=== PATIENT | male | born 1950 | race Caucasian/White ===

== ENCOUNTER → 2017-03-14 | Outpatient (CLI) | payer BC, MEDICARE ==
[2017-03-14 08:56] LABS: Blood Urea Nitrogen 18 mg/dL (9-20); Non-African American GFR(MDRD) >60 (>60 ml/min/1.73 sqM)
== END | disposition home or self-care (01) ==
LOC: LABWHC1 08:23
PROVIDERS: ATTEND Nurse Practitioner Family
DX: H93.19 Tinnitus, unspecified ear (principal); H93.3X9 Disorders of unspecified acoustic nerve; I67.89 Other cerebrovascular disease
CPT/HCPCS: 36415; 82565; 84520

== ENCOUNTER 2017-12-24 09:48 | Day surgery (SDC) | payer BC, MEDICARE ==
[2017-12-18 11:27] VITALS: BMI 29.3
[~2017-12-24 09:48] MED LIST: DEXAMETHASONE SOD PHOSPHATE 10 MG/ML 1 ML VIAL IV ONE; LACTATED RINGERS 1,000 ML IV SCH; LIDOCAINE 1% 20 ML VIAL (10MG/ML) FOR IV START INTRADERMA PRN; MOXIFLOXACIN HCL 0.5% DROPS 3 ML BTL OP ONE; TETRACAINE 0.5% OPHTH (PF) DROPS 4 ML BTL OP ONE; TIMOLOL 0.5% OPHTH DROPS 5 ML BTL OP ONE
[2017-12-24] MEDS: CYCLOPENTOLATE 1% OPHTH SOLN 2 ML BTL OP ONE ×2 (11:19→11:24)
[2017-12-24 11:22] VITALS: RESP 16; TEMP 98
[2017-12-24] MEDS: PHENYLEPHRINE 2.5% OPHTH DRP 2ML OP NR ×3 (11:22→11:35)
[2017-12-24] MEDS ORDERED: DUOVISC KIT (GREEN BOX) INTRAOCULA ONE (12:10)
[2017-12-24] MEDS ORDERED: LIDOCAINE 1% (PF) 10MG/ML VIAL SQ ONE (12:10)
[2017-12-24] MEDS ORDERED: BALANCED SALT IRRIG SOLN COMB2 15 ML IRRIG.SOLN IRRIGATION ONE (12:10)
[2017-12-24] MEDS ORDERED: EPINEPHrine (PF) 0.3 ML in BALANCED SALT IRRIG SOLN COMB2 500 ML IRRIGATION ONE (12:11)
[2017-12-24] MEDS ORDERED: fentaNYL (PF) 50 MCG/ML 2 ML AMP ONE (12:11)
[2017-12-24] MEDS ORDERED: MIDAZOLAM 2 MG/2 ML VIAL ONE (12:11)
--- NOTE | 2017-12-24 12:38 | P.OP ---
Date of Procedure: 12/24/17 Preoperative Diagnosis: PXS & PSC & NS & CS Postoperative Diagnosis: same Procedure(s) Performed: PIOL OS & CTR implantation Implants: PCB00 6.00 & [id number] Anesthesia: MAC Surgeon: Tyron Peterson Estimated Blood Loss (ml): 0 Pathology: none sent Condition: stable Disposition: same day Indications for Procedure: BLURRY VISION Operative Findings: No complications
[2017-12-24 13:02] VITALS: BP 128/80; PULSE 70
--- NOTE | 2017-12-24 21:58 | OP ---
OPERATIVE REPORT DATE OF SURGERY: 12/24/2017 PROCEDURE: Phacoemulsification of cataract and intraocular lens implant of the left eye. 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 SURGEONS: Dr. Tyron Peterson. ANESTHESIA: Topical. ESTIMATED BLOOD LOSS: None. SPECIMEN TAKEN: None. NARRATIVE: After obtaining the appropriate consent, the patient was brought to the operating room. There he was placed on cardiac monitoring, prepped and draped in the usual sterile manner. He was approached from his left temporal side and at the 5 o'clock position, a 1.1 mm stab blade was used to create a paracentesis port. Through this opening, 1% Xylocaine MPF 50:50 mix of balanced salt solution was injected into the anterior chamber. This was followed by stabilization of the anterior chamber with Viscoat. At the 3 o'clock position, a 2.5 mm keratome was used to create a self-sealing corneal flap incision in a Langerman fashion. Through this opening, a cystotome was used to begin a continuous tear capsulorrhexis, which was completed using the Utrata forceps. Hydrodissection and hydrodelineation of the lens was accomplished with balanced salt solution. Phacoemulsification lens utilizing phaco chop was accomplished in 7.54 seconds at 10% power. Additional Xylocaine MPF was instilled into the anterior chamber. This was followed by removal of the remaining cortex under irrigation and aspiration along with careful polishing of the posterior capsule in capsule vacuum mode. Provisc was then used to stabilize the capsular bag in the anterior chamber. An JIAN capsular tension ring, model STBL 13US was then inserted into the capsular bag without difficulty. This was followed by placement of an JIAN PCB 006 diopter posterior chamber intraocular lens into the capsular bag, also without difficulty. The remaining viscoelastic was then removed from in and around the intra-ocular lens, as well as the anterior chamber. The eye was then brought to normal intraocular pressure through the paracentesis port with balanced salt solution while confirming watertight integrity of the incisions. He then received 2 drops of moxifloxacin, as well as 2 drops of 0.5% timolol. He was then lightly patched and shielded in the usual manner. There were no complications from the procedure. He tolerated the procedure well, and was returned to outpatient recovery in good condition. MMDORYS / JON: [id number] /
== END 2017-12-24 13:13 | disposition home or self-care (01) ==
LOC: OR 09:48
PROVIDERS: ATTEND Ophthalmology
DX: H25.13 Age-related nuclear cataract, bilateral (principal); H01.009 Unspecified blepharitis unspecified eye, unspecified eyelid; H40.043 Steroid responder, bilateral; H18.4 Corneal degeneration; H25.042 Posterior subcapsular polar age-related cataract, left eye; H52.13 Myopia, bilateral; H52.223 Regular astigmatism, bilateral; H52.4 Presbyopia; H35.433 Paving stone degeneration of retina, bilateral; H00.023 Hordeolum internum right eye, unspecified eyelid; H00.026 Hordeolum internum left eye, unspecified eyelid; E07.9 Disorder of thyroid, unspecified; I69.311 Memory deficit following cerebral infarction; Z87.891 Personal history of nicotine dependence; Z79.82 Long term (current) use of aspirin; Z79.890 Hormone replacement therapy; Z79.899 Other long term (current) drug therapy
CPT/HCPCS: 66984; L8610; C1780; J2250; J0171; J3010; J2001

== ENCOUNTER → 2018-01-14 | Day surgery (SDC) | payer BC ==
[2018-01-13 08:18] VITALS: BMI 29.3
[~2018-01-14] MED LIST changes: +BALANCED SALT IRRIG SOLN COMB2 15 ML IRRIG.SOLN IRRIGATION ONE; -DEXAMETHASONE SOD PHOSPHATE 10 MG/ML 1 ML VIAL IV ONE; +HYALURONATE SODIUM INTRAOCULAR 1 EACH SYRINGE (12MG/ML) INTRAOCULA ONE; +LIDOCAINE 1% (PF) 10MG/ML VIAL SQ ONE; +MIDAZOLAM 2 MG/2 ML VIAL IV PRN; +MIDAZOLAM 2 MG/2 ML VIAL ONE; +fentaNYL (PF) 50 MCG/ML 2 ML AMP ONE
[2018-01-14] MEDS: PHENYLEPHRINE 2.5% OPHTH DRP 2ML OP NR ×4 (09:53→10:06)
[2018-01-14] MEDS: CYCLOPENTOLATE 1% OPHTH SOLN 2 ML BTL OP ONE ×3 (09:55→10:06)
[2018-01-14 09:58] VITALS: RESP 16; TEMP 97.7
--- NOTE | 2018-01-14 11:27 | P.OP ---
Date of Procedure: 01/14/18 Preoperative Diagnosis: NS & CS & PSC & PXS Postoperative Diagnosis: same Procedure(s) Performed: PIOL & CTR implantation OD Implants: PCB00 6.0 & CTR [id number] Anesthesia: MAC (per) Surgeon: Tyron Peterson Estimated Blood Loss (ml): 0 Pathology: none sent Condition: stable Disposition: same day Indications for Procedure: blurry vision Operative Findings: No complications
[2018-01-14 12:16] VITALS: BP 122/80; PULSE 54
--- NOTE | 2018-01-14 19:35 | OP ---
OPERATIVE REPORT DATE OF SURGERY: January 14, 2018. PROCEDURE PERFORMED: Phacoemulsification of cataract and intraocular lens implant of the right eye with capsular tension ring implantation. PREOPERATIVE DIAGNOSES: Nuclear sclerosis, cortical sclerosis, posterior subcapsular cataract, and pseudo exfoliative lens changes. POSTOPERATIVE DIAGNOSES: Nuclear sclerosis, cortical sclerosis, posterior subcapsular cataract and pseudo exfoliative lens changes. SURGEONS: Dr. Tyron Peterson. ANESTHESIA: Topical. ESTIMATED BLOOD LOSS: None. SPECIMEN: Taken none. NARRATIVE: After obtaining the appropriate consent, the patient was brought to the operating room. There he was placed under cardiac monitoring, prepped and draped in usual sterile manner. He was approached from his right temporal side and at the 11 o'clock position, a 20-gauge stab blade was used to create a paracentesis port through this opening 1% Xylocaine MPF 50/50 mix of balanced salt solution was injected into the anterior chamber. This was followed by stabilization of the anterior chamber with Amvisc. At the 9 o'clock position, a 2.5 mm keratome was used to create a self-sealing corneal flap incision. Through this opening, a cystotome was introduced to begin a continuous tear capsulorrhexis which was completed using the Utrata forceps. Hydrodissection and hydrodelineation of the lens was accomplished with balanced salt solution. Phacoemulsification of the lens utilizing phaco chop was accomplished in 8.24 seconds at 10% power. This was followed by additional Xylocaine MPF in the anterior chamber and removal of the remaining cortex under irrigation aspiration along with careful polishing of the posterior capsule in the capsule vacuum mode. Additional Amvisc was used to stabilize the capsular bag in the anterior chamber and an JIAN model [id number] capsular tension ring was inserted into the equator of the capsular bag without difficulty. This was followed by placement of an JIAN PCB 00 6.0 diopter posterior chamber intra-ocular lens also into the capsular bag without difficulty. The remaining viscoelastic was then removed from in and around the intra-ocular lens as well as the anterior chamber. The eye was then brought to normal intraocular pressure through the paracentesis port with balanced salt solution. The incisions were confirmed watertight. He then received 2 drops of 0.5% timolol followed by 2 drops of Vigamox, was then lightly patched and shielded in the usual manner. There were no complications from the procedure. He tolerated the procedure well and was returned to outpatient recovery in good condition. MMDORYS / JON: [id number] /
== END ==
LOC: OR 07:47
PROVIDERS: ATTEND Ophthalmology
DX: H25.11 Age-related nuclear cataract, right eye (principal); H26.8 Other specified cataract; H52.223 Regular astigmatism, bilateral; H01.009 Unspecified blepharitis unspecified eye, unspecified eyelid; H40.043 Steroid responder, bilateral; H18.4 Corneal degeneration; H52.13 Myopia, bilateral; H00.023 Hordeolum internum right eye, unspecified eyelid; H00.025 Hordeolum internum left lower eyelid; H52.4 Presbyopia; H35.433 Paving stone degeneration of retina, bilateral; Z96.1 Presence of intraocular lens; Z87.891 Personal history of nicotine dependence; E07.9 Disorder of thyroid, unspecified; Z86.73 Personal history of transient ischemic attack (TIA), and cerebral infarction without residual deficits; Z79.2 Long term (current) use of antibiotics; Z79.82 Long term (current) use of aspirin; Z79.890 Hormone replacement therapy; Z79.899 Other long term (current) drug therapy
CPT/HCPCS: 66982; L8610; C1780; J2250; J3010; J2001

== ENCOUNTER 2019-06-16 18:20 | Emergency (ER) | payer BC, MEDICARE ==
[2019-06-16 18:28] VITALS: RESP 18
[2019-06-16] MEDS ORDERED: PIPERACILLIN-TAZOBACTAM 3.375 GM in SODIUM CHLORIDE 0.9% 100 ML IVPB STA (19:28)
[2019-06-16] MEDS ORDERED: SODIUM CHLORIDE 0.9% 1,000 ML IV ONE (19:28)
[2019-06-16] MEDS ORDERED: SODIUM CHLORIDE 0.9% 1,000 ML IV SCH (19:30)
--- NOTE | 2019-06-16 19:57 | XR ---
EXAMINATION TYPE: XR hand complete LT DATE OF EXAM: 06/16/2019 COMPARISON: NONE HISTORY: Pain TECHNIQUE: 3 views FINDINGS: There is soft tissue swelling on the dorsum of the hand. Metacarpals are intact. I see no f racture nor dislocation. There is spurring at the first carpometacarpal joint. IMPRESSION: Soft tissue swelling. No fracture seen. Osteoarthritis at the first carpometacarpal joint and also the second and third MP joints.
[2019-06-16 20:18] LABS: Basophils # (A) 0.1 k/uL (0-0.2); Basophils % (A) 1 %; Eosinophils # (A) 0.3 k/uL (0-0.7); Eosinophils % (A) 3 %; HCT 44.9 % (39.0-53.0); Lymphocytes # (A) 1.4 k/uL (1.0-4.8); Lymphocytes % (A) 17 %; MCH 30.1 pg (25.0-35.0); MCHC 33.5 g/dL (31.0-37.0); MCV 89.9 fL (80.0-100.0); Mean Platelet Volume 7.1; Monocytes # (A) 0.7 k/uL (0-1.0); Monocytes % (A) 8 %; Neutrophils # (A) 5.3 k/uL (1.3-7.7); Neutrophils % (A) 67 %; Platelet Count 267 k/uL (150-450); RDW 12.3 % (11.5-15.5); WBC 7.9 k/uL (3.8-10.6)
[2019-06-16 20:27] LABS: Albumin 4.1 g/dL (3.5-5.0); Calcium 9.3 mg/dL (8.4-10.2); Potassium 4.9 mmol/L (3.5-5.1); Total Bilirubin 0.7 mg/dL (0.2-1.3); Total Protein 6.8 g/dL (6.3-8.2)
--- NOTE | 2019-06-16 21:32 | US ---
EXAMINATION TYPE: US venous doppler duplex UE LT DATE OF EXAM: 06/16/2019 COMPARISON: NONE CLINICAL HISTORY: swelling hand. Left hand swelling x 1 week. No hx of DVT. Patient takes aspirin. SIDE PERFORMED: Left Left Arm: No evidence of DVT in veins imaged at this time. IMPRESSION: Negative left arm duplex venous sonogram.
--- NOTE | 2019-06-16 22:00 | ED ---
Extremity Problem HPI - General Source: patient Mode of arrival: ambulatory Limitations: no limitations <Yesy Ramirez - Last Filed: 06/16/19 23:17> <Teresa Velásquez - Last Filed: 06/18/19 00:23> - General Chief complaint: Extremity Problem,Nontraumatic Stated complaint: Swollen hand Time Seen by Provider: 06/16/19 18:59 - History of Present Illness Initial comments: 68-year-old male presenting to [facility] for evaluation of left hand swelling. Patient states approximately a week ago he sustained a scratch to the left hand. He states a few days later after mowing the grass he noticed hand swelling. He states some increasing and became warm over the past week. Patient denies fevers flex symptoms denies any swelling of the digits are decreased range of motion of the digits. Patient denies any forced flexed positioning of the fingers. Patient denies any proximal swelling. Denies history of DVT or p ulmonary embolism. Patient denies any history of cancer. Patient denies any other complaints or areas of injury or complaints. Remaining ROS negative. (Yesy Ramirez) - Related Data Home Medications Medication Instructions Recorded Confirmed Atorvastatin Calcium 20 mg PO QAM 09/25/15 01/13/18 Cholecalciferol [Vitamin D3] 4,000 unit PO DAILY 09/25/15 01/13/18 Levothyroxine Sodium [Synthroid] 112 mcg PO QAM 09/25/15 01/13/18 Ubidecarenone [Co Q-10] 200 mg PO DAILY 09/25/15 01/13/18 Aspirin 325 mg PO DAILY 12/18/17 01/13/18 Cyanocobalamin (Vitamin B-12) 5,000 mcg PO DAILY 12/18/17 01/13/18 [Vitamin B12] Previous Rx's Medication Instructions Recorded Cephalexin [Keflex] 500 mg PO Q6HR 7 Days #28 cap 06/16/19 Sulfamethox-Tmp 800-160Mg [Bactrim 1 tab PO Q12HR 10 Days #20 tab 06/16/19 DS 800-160 mg] Allergies Allergy/AdvReac Type Severity Reaction Status Date / Time No Known Allergies Allergy Verified 06/16/19 18:28 Review of Systems ROS Other: All systems not noted in ROS Statement are negative. <Yesy Ramirez - Last Filed: 06/16/19 23:17> ROS Other: All systems not noted in ROS Statement are negative. <Teresa Velásquez P - Last Filed: 06/18/19 00:23> ROS Statement: Those systems with pertinent positive or pertinent negative responses have been documented in the HPI. Past Medical History Past Medical History: Hyperlipidemia, Thyroid Disorder Additional Past Medical History / Comment(s): HYPOTHYROIDISM, CATARACT RIGHT EYE History of Any Multi-Drug Resistant Organisms: None Reported Past Surgical History: Tonsillectomy Additional Past Surgical History / Comment(s): HEMORROIDECTOMY, CATARACT LEFT EYE 12/24/17 Past Anesthesia/Blood Transfusion Reactions: No Reported Reaction Past Psychological History: No Psychological Hx Reported Smoking Status: Former smoker Past Alcohol Use History: Occasional Past Drug Use History: None Reported - Past Family History Mother Family Medical History: No Reported History <Yesy Ramirez - Last Filed: 06/16/19 23:17> General Exam Limitations: no limitations <Yesy Ramirez - Last Filed: 06/16/19 23:17> - General Exam Comments Initial Comments: General: The patient is awake and alert, in no distress, and does not appear acutely ill. Eye: Pupils are equal, round and reactive to light, extra-ocular movements are intact. No nystagmus. There is normal conjunctiva bilaterally. No signs of icterus. Cardiovascular: There is a regular rate and rhythm. No murmur, rub or gallop is appreciated. Respiratory: Lungs are clear to auscultation, respirations are non-labored, breath sounds are equal. No wheezes, stridor, rales, or rhonchi. Musculoskeletal: Patient has swelling of the dorsum of the left hand. No rash. Small superficial abrasion noted. Patient is able to fully flex extend at the MCP DIP and PIP joints no fusiform swelling. There is mild swelling of all 5 digits however. Patient is not area of fluctuant abscess Strength 5/5. Sensation intact. =Radial pulses equal bilaterally 2+. Neurological: A&O x 3. CN II-XII intact, There are no obvious motor or sensory deficits. Coordination appears grossly intact. Speech is normal. Skin: Skin is warm and dry and no rashes or lesions are noted. Psychiatric: Cooperative, appropriate mood & affect, normal judgment. (Yesy Ramirez) Course Vital Signs 11/13/19 11/13/19 18:26 22:40 Temperature 98.1 F 98.2 F Pulse Rate 74 68 Respiratory 18 18 Rate Blood Pressure 143/91 117/68 O2 Sat by Pulse 99 97 Oximetry Medical Decision Making - Lab Data Result diagrams: 06/16/19 20:00 06/16/19 20:00 <Yesy Ramirez - Last Filed: 06/16/19 23:17> - Lab Data Result diagrams: 06/16/19 20:00 06/16/19 20:00 <Teresa Velásquez - Last Filed: 06/18/19 00:23> - Medical Decision Making 68-year-old male presenting to the ER for chief complaint of hand swelling. Abrasion with soft tissue swelling and redness concerning for cellulitis and exam. Ultrasound negative for DVT. Laboratory studies stable no evidence of leukocytosis. No systemic signs of infection. No signs of flexor tenosynovitis patient was evaluated by my attending provider he was given 1 dose of Zosyn at this time we feel patient is stable for discharge with outpatient primary care follow-up and strict return parameters for worsening symptoms. Patient verbalized understanding and was discharged appearing well with Keflex and Bactrim. (Yesy Ramirez) I personally saw and evaluated the patient, patient was swelling of the dorsum of the hand no obvious abscess. Patient will be discharged home with oral antibiotics. Close return parameters were discussed with the patient and his at bedside who presents understanding and agreement with plan. (Teresa Swan) - Lab Data Lab Results 06/16/19 06/16/19 06/16/19 Range/Units 20:00 20:00 20:00 WBC 7.9 (3.8-10.6) k/uL RBC 5.00 (4.30-5.90) m/uL Hgb 15.0 (13.0-17.5) gm/dL Hct 44.9 (39.0-53.0) % MCV 89.9 (80.0-100.0) fL MCH 30.1 (25.0-35.0) pg MCHC 33.5 (31.0-37.0) g/dL RDW 12.3 (11.5-15.5) % Plt Count 267 (150-450) k/uL Neutrophils % 67 % Lymphocytes % 17 % Monocytes % 8 % Eosinophils % 3 % Basophils % 1 % Neutrophils # 5.3 (1.3-7.7) k/uL Lymphocytes # 1.4 (1.0-4.8) k/uL Monocytes # 0.7 (0-1.0) k/uL Eosinophils # 0.3 (0-0.7) k/uL Basophils # 0.1 (0-0.2) k/uL Sodium 139 (137-145) mmol/L Potassium 4.9 (3.5-5.1) mmol/L Chloride 107 (98-107) mmol/L Carbon Dioxide 24 (22-30) mmol/L Anion Gap 8 mmol/L BUN 24 H (9-20) mg/dL Creatinine 1.34 H (0.66-1.25) mg/dL Est GFR (CKD-EPI)AfAm 63 (>60 ml/min/1.73 sqM) Est GFR (CKD-EPI)NonAf 55 (>60 ml/min/1.73 sqM) Glucose 99 (74-99) mg/dL Plasma Lactic Acid Juma 1.0 (0.7-2.0) mmol/L Calcium 9.3 (8.4-10.2) mg/dL Total Bilirubin 0.7 (0.2-1.3) mg/dL AST 33 (17-59) U/L ALT 25 (21-72) U/L Alkaline Phosphatase 58 (38-126) U/L Total Protein 6.8 (6.3-8.2) g/dL Albumin 4.1 (3.5-5.0) g/dL Disposition Is patient prescribed a controlled substance at d/c from ED?: No Time of Disposition: 22:24 <Yesy Ramirez L - Last Filed: 06/16/19 23:17> <Teresa Velásquez P - Last Filed: 06/18/19 00:23> Clinical Impression: Cellulitis of left hand Disposition: HOME SELF-CARE Condition: Good Instructions (If sedation given, give patient instructions): Cellulitis (ED) Additional Instructions: Please use medication as discussed. Please follow-up with family doctor in the next 2 days Please return to emergency room if the symptoms increase or worsen or for any other concerns. Prescriptions: Sulfamethox-Tmp 800-160Mg [Bactrim DS 800-160 mg] 1 tab PO Q12HR 10 Days #20 tab Cephalexin [Keflex] 500 mg PO Q6HR 7 Days #28 cap Referrals: Juan Miguel Gomez DO [Primary Care Provider] - 1-2 days
[2019-06-16 23:05] VITALS: BP 117/68; PULSE 68; TEMP 98.2
== END 2019-06-16 23:05 | disposition home or self-care (01) ==
LOC: EC 18:20
DX: L03.114 Cellulitis of left upper limb (principal); E78.5 Hyperlipidemia, unspecified; E03.9 Hypothyroidism, unspecified; Z79.890 Hormone replacement therapy; Z79.82 Long term (current) use of aspirin; Z79.899 Other long term (current) drug therapy; Z87.891 Personal history of nicotine dependence
CPT/HCPCS: 36415; 80053; 83605; 85025; 87040; 73130; 93971; 99284; 96365; 96361 ×2; J2543

== ENCOUNTER 2022-03-28 08:45 | Day surgery (SDC) | payer BC ==
[2022-03-26 12:25] VITALS: BMI 29.2
[~2022-03-28 08:45] MED LIST changes: -BALANCED SALT IRRIG SOLN COMB2 15 ML IRRIG.SOLN IRRIGATION ONE; -HYALURONATE SODIUM INTRAOCULAR 1 EACH SYRINGE (12MG/ML) INTRAOCULA ONE; +LIDOCAINE 1% (10MG/ML) FOR IV START INTRADERMA PRN; -LIDOCAINE 1% (PF) 10MG/ML VIAL SQ ONE; -LIDOCAINE 1% 20 ML VIAL (10MG/ML) FOR IV START INTRADERMA PRN; -MIDAZOLAM 2 MG/2 ML VIAL IV PRN; -MIDAZOLAM 2 MG/2 ML VIAL ONE; -MOXIFLOXACIN HCL 0.5% DROPS 3 ML BTL OP ONE; -TETRACAINE 0.5% OPHTH (PF) DROPS 4 ML BTL OP ONE; -TIMOLOL 0.5% OPHTH DROPS 5 ML BTL OP ONE; -fentaNYL (PF) 50 MCG/ML 2 ML AMP ONE
[2022-03-28 09:22] VITALS: RESP 16; TEMP 97.6
[2022-03-28] MEDS ORDERED: PROPOFOL 10 MG/ML 20 ML VIAL IV ONE (09:54)
[2022-03-28] MEDS ORDERED: GLYCOPYRROLATE 0.2 MG/ML 2 ML VIAL ONE (09:54)
--- NOTE | 2022-03-28 09:58 | P.GSHP ---
History of Present Illness H&P Date: 03/28/22 Chief Complaint: screening colonoscopy This is a 71-year-old male who presents today for screening colonoscopy. Patient denies a significant GI complaints. Past Medical History Past Medical History: Hearing Disorder / Deafness, Hyperlipidemia, Thyroid Disorder Additional Past Medical History / Comment(s): Hard of hearing. History of Any Multi-Drug Resistant Organisms: None Reported Past Surgical History: Tonsillectomy Additional Past Surgical History / Comment(s): HEMORROIDECTOMY, BILATERAL CATARACTS REMOVED with lens implants. Past Anesthesia/Blood Transfusion Reactions: No Reported Reaction Past Psychological History: No Psychological Hx Reported Smoking Status: Former smoker Past Alcohol Use History: Rare Additional Past Alcohol Use History / Comment(s): QUIT SMOKING 38 YRS AGO, SMOKED FOR 28 YRS, 1.5-2 PPD. Past Drug Use History: None Reported - Past Family History Mother Family Medical History: Cancer Medications and Allergies Home Medications Medication Instructions Recorded Confirmed Type Cholecalciferol [Vitamin D3] 4,000 unit PO DAILY 09/25/15 03/26/22 History Ubidecarenone [Co Q-10] 200 mg PO DAILY 09/25/15 03/26/22 History Aspirin 325 mg PO DAILY 12/18/17 03/26/22 History Cyanocobalamin (Vitamin B-12) 5,000 mcg PO DAILY 12/18/17 03/26/22 History [Vitamin B12] Atorvastatin [Lipitor] 40 mg PO DAILY 03/26/22 03/26/22 History Biotin (Unknown Dose) 1 tab PO DAILY 03/26/22 03/26/22 History Carboxymethylcellulose Sodium 1 dropper BOTH EYES DAILY 03/26/22 03/26/22 History [Thera Tears] Cognium (Supplement - Dose ?) 1 tab PO DAILY 03/26/22 03/26/22 History Levothyroxine Sodium 100 mcg PO HS 03/26/22 03/26/22 History Vitamin B-6 (Unknown Dose) 1 tab PO DAILY 03/26/22 03/26/22 History Allergies Allergy/AdvReac Type Severity Reaction Status Date / Time No Known Allergies Allergy Verified 03/26/22 12:09 Surgical - Exam Vital Signs Temp Pulse Resp BP Pulse Ox 97.6 F 59 L 16 121/71 98 03/28/22 09:19 03/28/22 09:19 03/28/22 09:19 03/28/22 09:19 03/28/22 09:19 - General well developed, well nourished - Eyes PERRL - ENT normal pinna - Neck no masses - Respiratory normal expansion - Cardiovascular Rhythm: regular - Abdomen Abdomen: soft, non tender Assessment and Plan Assessment: We'll perform screening colonoscopy
--- NOTE | 2022-03-28 10:08 | P.OP ---
Date of Procedure: 03/28/22 Preoperative Diagnosis: Screening colonoscopy Postoperative Diagnosis: Screening colonoscopy Procedure(s) Performed: Colonoscopy Anesthesia: MAC Surgeon: Marcio Ayala Pathology: none sent Condition: stable Disposition: PACU Description of Procedure: The patient's placed on the endoscopy table in the lateral position. He received IV sedation. Digital rectal exam was performed. This revealed no abnormalities. The colostomy was then placed patient anus passed with colon. Due to torsion of bowel transverse colon the patient had some vagal response. Patient has several episodes of heart block lasting up to 6 seconds. This was treated by the anesthesia. However the patient was persistent in his prolonged heart block. This point the procedure was terminated. The colonoscope was then brought back to visualize colon appeared normal. Was then removed from the patient.
[2022-03-28 10:30] VITALS: BP 101/73; PULSE 68
== END 2022-03-28 11:00 | disposition home or self-care (01) ==
LOC: ORWHC2ENDO 08:45
PROVIDERS: ATTEND Surgery
DX: Z12.11 Encounter for screening for malignant neoplasm of colon (principal); Q43.8 Other specified congenital malformations of intestine; H91.90 Unspecified hearing loss, unspecified ear; E78.5 Hyperlipidemia, unspecified; E07.9 Disorder of thyroid, unspecified; Z98.42 Cataract extraction status, left eye; Z98.41 Cataract extraction status, right eye; Z96.1 Presence of intraocular lens; Z98.890 Other specified postprocedural states; Z87.891 Personal history of nicotine dependence; Z80.9 Family history of malignant neoplasm, unspecified; Z79.82 Long term (current) use of aspirin; Z79.890 Hormone replacement therapy; Z79.899 Other long term (current) drug therapy; Z97.2 Presence of dental prosthetic device (complete) (partial)
CPT/HCPCS: J2704; G0121; 45378

== ENCOUNTER 2023-03-14 09:58 | Emergency (ER) | payer BC ==
[2023-03-14] MEDS ORDERED: DIPH,PERTUS(ACELL)TETVAC-LF 0.5 ML VIAL IM ONE (10:51)
[2023-03-14] MEDS ORDERED: LIDOCAINE 1% INJ 10MG/ML (20 ML MDV) SQ ONE (10:51)
--- NOTE | 2023-03-14 11:22 | ED ---
Wound/Laceration HPI - General Chief Complaint: Wound/Laceration Stated Complaint: R leg laceration Time Seen by Provider: 03/14/23 10:31 Source: patient, RN notes reviewed Mode of arrival: ambulatory Limitations: no limitations - History of Present Illness Initial Comments: This is a 72-year-old male who presents to the emergency department for a lacera tion to the right leg from a chainsaw. States that this happened just earlier today, when he was using a chainsaw and it came down on his leg. Denies any substantial pain with this. Unsure when his last tetanus vaccine was. States that this was a very clean injury. Denies any fevers, chills, sore throat, cough, dyspnea, chest pain, palpitations, abdominal pain, nausea, vomiting, diarrhea, back pain, or headaches. - Related Data Home Medications Medication Instructions Recorded Confirmed Cholecalciferol [Vitamin D3] 4,000 unit PO DAILY 09/25/15 03/26/22 Ubidecarenone [Co Q-10] 200 mg PO DAILY 09/25/15 03/26/22 Aspirin 325 mg PO DAILY 12/18/17 03/26/22 Cyanocobalamin (Vitamin B-12) 5,000 mcg PO DAILY 12/18/17 03/26/22 [Vitamin B12] Atorvastatin [Lipitor] 40 mg PO DAILY 03/26/22 03/26/22 Biotin (Unknown Dose) 1 tab PO DAILY 03/26/22 03/26/22 Carboxymethylcellulose Sodium 1 dropper BOTH EYES DAILY 03/26/22 03/26/22 [Thera Tears] Cognium (Supplement - Dose ?) 1 tab PO DAILY 03/26/22 03/26/22 Levothyroxine Sodium 100 mcg PO HS 03/26/22 03/26/22 Vitamin B-6 (Unknown Dose) 1 tab PO DAILY 03/26/22 03/26/22 Allergies Allergy/AdvReac Type Severity Reaction Status Date / Time No Known Allergies Allergy Verified 03/14/23 10:09 Review of Systems ROS Statement: Those systems with pertinent positive or pertinent negative responses have been documented in the HPI. ROS Other: All systems not noted in ROS Statement are negative. Past Medical History Past Medical History: Hearing Disorder / Deafness, Hyperlipidemia, Thyroid Disorder Additional Past Medical History / Comment(s): Hard of hearing. History of Any Multi-Drug Resistant Organisms: None Reported Past Surgical History: Tonsillectomy Additional Past Surgical History / Comment(s): HEMORROIDECTOMY, BILATERAL CATARACTS REMOVED with lens implants. Past Anesthesia/Blood Transfusion Reactions: No Reported Reaction Past Psychological History: No Psychological Hx Reported Smoking Status: Former smoker Past Alcohol Use History: Rare Past Drug Use History: None Reported - Past Family History Mother Family Medical History: Cancer General Exam Limitations: no limitations General appearance: alert, in no apparent distress Head exam: Present: atraumatic, normocephalic, normal inspection Respiratory exam: Present: normal lung sounds bilaterally. Absent: respiratory distress, wheezes, rales, rhonchi, stridor Cardiovascular Exam: Present: regular rate, normal rhythm, normal heart sounds. Absent: systolic murmur, diastolic murmur, rubs, gallop, clicks Extremities exam: Present: other (4 cm laceration superior to the right knee. Visible subcutaneous tissue. No active bleeding.) Neurological exam: Present: alert, oriented X3, CN II-XII intact Psychiatric exam: Present: normal affect, normal mood Course Vital Signs 03/14/23 03/14/23 10:07 11:35 Temperature 98 F 97.9 F Pulse Rate 56 L 64 Respiratory 20 18 Rate Blood Pressure 117/69 118/69 O2 Sat by Pulse 99 99 Oximetry Procedures - Laceration Laceration #1 Consent Obtained: verbal consent Indication: laceration Site: lower extremity Size (cm): 4 Description: linear Depth: simple, single layer Anesthetic Used: lidocaine 1% Anesthesia Technique: local infiltration Amount (mls): 5 Pre-repair: wound explored, irrigated extensively Type of Sutures: nylon Size of Sutures: 4-0 Number of Sutures: 8 Technique: simple, interrupted Medical Decision Making - Medical Decision Making This is a 72-year-old male who presents to the emergency department for a laceration. Was pt. sent in by a medical professional or institution? @ -No Did you speak to anyone other than the patient for history? @ -No Did you review nursing and triage notes? @ -Yes, and I agree, it is accurate with regards to the patient's symptoms. Were old charts reviewed? @ -No Differential Diagnosis? @ -Not applicable EKG interpreted by me (3pts min.)? @ -Not obtained X-rays interpreted by me (1pt min.)? @ -Not obtained CT interpreted by me (1pt min.)? @ -Not obtained U/S interpreted by me (1pt. min.)? @ -Not obtained What testing was considered but not performed? (CT, X-rays, U/S, labs)? Why? @ -None What meds were considered but not given? Why? @ -None Did you discuss the management of the patient with other professionals? @ -No Did you reconcile home meds? @ -No Was smoking cessation discussed for >3mins.? @ -No Was critical care preformed (if so, how long)? @ -No Were there social determinants of health that impacted care today? How? (Homelessness, low income, unemployed, alcoholism, drug addiction, transportation, low edu. Level, literacy, decrease access to med. care, assisted, rehab)? @ -No Was there de-escalation of care discussed even if they declined? (Discuss DNR or withdrawal of care, Hospice)? @ -No What co-morbidities impacted this encounter? (DM, HTN, Smoking, COPD, CAD, Cancer, CVA, Hep., AIDS, mental health diagnosis, sleep apnea, morbid obesity)? @ -None Was patient admitted / discharged? @ -Discharged. Patient's tetanus vaccine was updated. The laceration was thoroughly cleansed and closed with sutures. Advised ibuprofen and Tylenol as needed for pain relief. He is instructed to return in 7-10 days for suture removal. Undiagnosed new problem with uncertain prognosis? @ -None Drug Therapy requiring intensive monitoring for toxicity (Heparin, Nitro, Insulin, Cardizem)? @ -None Were any procedures done? @ -Laceration repair with sutures Diagnosis/symptom? @ -Laceration Acute, or Chronic, or Acute on Chronic? @ -Acute Uncomplicated (without systemic symptoms) or Complicated (systemic symptoms)? @ -Uncomplicated Side effects of treatment? @ -None Exacerbation, Progression, or Severe Exacerbation] @ -Not applicable Poses a threat to life or bodily function? @ -No Return precautions reviewed in depth, the patient is instructed to return to the emergency department with any new, worsening, or concerning symptoms. Patient verbalized understanding. This case was discussed in detail with the attending ED physician, Dr. Lawrence. Presentation, findings, and treatment plan discussed in detail as well. Disposition Clinical Impression: Laceration Disposition: HOME SELF-CARE Instructions (If sedation given, give patient instructions): Care For Your Stitches (ED) Additional Instructions: Return to the emergency department with any new, worsening, or concerning symptoms and in 7-10 days for removal of the stitches. Alternate with ibuprofen and Tylenol as needed for pain relief. Follow up with your primary care provider in 1-2 days. Is patient prescribed a controlled substance at d/c from ED?: No Referrals: Juan Miguel Gomez DO [Primary Care Provider] - 1-2 days
[2023-03-14 11:36] VITALS: BP 118/69; PULSE 64; RESP 18; TEMP 97.9
== END 2023-03-14 11:36 | disposition home or self-care (01) ==
LOC: EC 09:58
DX: S81.011A Laceration without foreign body, right knee, initial encounter (principal); E78.5 Hyperlipidemia, unspecified; E07.9 Disorder of thyroid, unspecified; Z23 Encounter for immunization; Z79.82 Long term (current) use of aspirin; Z79.890 Hormone replacement therapy; Z79.899 Other long term (current) drug therapy; Z87.891 Personal history of nicotine dependence; W29.3XXA Contact with powered garden and outdoor hand tools and machinery, initial encounter
CPT/HCPCS: 90715; 99282; 90471; 12002; J2001

== ENCOUNTER → 2024-03-09 | Outpatient (CLI) | payer BC | END | disposition home or self-care (01) | LOC: LABPRL 08:35 | PROVIDERS: ATTEND Family Medicine | DX: Z00.00 Encounter for general adult medical examination without abnormal findings (principal); Z12.5 Encounter for screening for malignant neoplasm of prostate; E78.5 Hyperlipidemia, unspecified; R73.9 Hyperglycemia, unspecified | CPT/HCPCS: 80053; 80061; 83036; 84439; 84443; 85025 ==